=== PATIENT | male | born 1990 | race Two or more races ===

== ENCOUNTER 2022-12-16 17:24 | Emergency (ER) | payer OTHER ==
[2022-12-16 17:56] VITALS: BP 123/89; PULSE 83; RESP 18; TEMP 97.6; BMI 36.7
[2022-12-16] MEDS ORDERED: FAMOTIDINE 20 MG/50 ML IVPB 20 MG/50 ML MG IVPB ONE ×2 (18:47→19:25)
[2022-12-16] MEDS ORDERED: SODIUM CHLORIDE 1,000 ML IV STA (18:47)
[2022-12-16] MEDS ORDERED: ACETAMINOPHEN 1000 MG/100 ML BAG IVPB ONE (18:47)
[2022-12-16] MEDS ORDERED: MAG HYDROX/AL HYDROX/SIMETH 30 ML UNIT-DOSE CUP PO ONE (18:47)
[2022-12-16] MEDS ORDERED: ONDANSETRON 4 MG/2 ML VIAL IVPUSH ONE (18:48)
[2022-12-16] MEDS ORDERED: ONDANSETRON 4 MG/2 ML VIAL ONE (19:25)
[2022-12-16] MEDS ORDERED: ACETAMINOPHEN INJECTION 100 ML IVPB ONE (19:25)
[2022-12-16] MEDS ORDERED: MAG HYDROX/AL HYDROX/SIMETH 30 ML UNIT-DOSE CUP ONE (19:25)
[2022-12-16 19:41] LABS: EOS % 0.4 % (0-4.5); HEMATOCRIT 49.8 % (35.4-49); HEMOGLOBIN 16.6 GM/dL (11.7-16.9); LYMPH % 29.8 % (8-40); MCH 26.5 pg (25.7-33.7); MCHC 33.2 g/dl (32.0-35.9); MEAN CELL VOLUME 79.6 fl (80-96); MEAN PLT VOLUME 6.8 fl (7.5-11.1); MONO % 7.4 % (3.8-10.2); NEUT % 61.4 % (42.8-82.8); PLATELET COUNT 295 10^3/uL (134-434); RBC 6.26 M/mm3 (4.00-5.60); RDW 14.9 % (11.9-15.9); WHITE BLOOD COUNT 8.5 K/mm3 (4.0-10.0)
[2022-12-16 20:02] LABS: POTASSIUM 4.2 mmol/L (3.5-5.1)
[2022-12-16 20:04] LABS: BLOOD UREA NITROGEN 9.7 mg/dL (7-18); CALCIUM 9.1 mg/dL (8.5-10.1)
[2022-12-16 20:05] LABS: MAGNESIUM 1.9 mg/dL (1.8-2.4)
[2022-12-16 20:08] LABS: CREATININE 0.9 mg/dL (0.55-1.3)
[2022-12-16 20:09] LABS: BILIRUBIN,TOTAL 0.3 mg/dL (0.2-1)
[2022-12-16 21:03] LABS: PH,URINE 5.5 (5.0-8.0); URINE APPEARANCE CLEAR; URINE BILIRUBIN NEGATIVE (NEGATIVE); URINE COLOR YELLOW; URINE GLUCOSE (UA) 2+ (NEGATIVE); URINE KETONE NEGATIVE (NEGATIVE); URINE LEUK ESTERASE NEGATIVE (NEGATIVE); URINE NITRITE NEGATIVE (NEGATIVE); URINE PROTEIN TRACE (NEGATIVE); URINE UROBILINOGEN 0.2 mg/dL (0.2-1.0)
== END 2022-12-16 22:32 | disposition home or self-care (01) ==
LOC: JER 17:24
PROC: 3E033GC Introduction of Other Therapeutic Substance into Peripheral Vein, Percutaneous Approach (ICD-10-PCS; principal; 2022-12-16)
PROC: 3E033NZ Introduction of Analgesics, Hypnotics, Sedatives into Peripheral Vein, Percutaneous Approach (ICD-10-PCS; 2022-12-16)
PROC: 3E033GC Introduction of Other Therapeutic Substance into Peripheral Vein, Percutaneous Approach (ICD-10-PCS; 2022-12-16)
PROC: 3E0337Z Introduction of Electrolytic and Water Balance Substance into Peripheral Vein, Percutaneous Approach (ICD-10-PCS; 2022-12-16)
DX: R10.31 Right lower quadrant pain (principal); R11.2 Nausea with vomiting, unspecified; R63.0 Anorexia; K52.9 Noninfective gastroenteritis and colitis, unspecified; Z20.822 Contact with and (suspected) exposure to COVID-19
CPT/HCPCS: 0241U-QW; 36415; 74177-TC; 80053; 81003; 83690; 83735; 85025; 87086; 99285-25; Q9967